=== PATIENT | male | born 1975 | race Caucasian/White ===

== ENCOUNTER 2016-09-29 01:54 | Observation (INO) | payer OTHER ==
[~2016-09-29] VITALS: Ht 182.9 cm; Wt 93.9 kg
[2016-09-29] VITALS (9 sets, daily range): BP systolic 95–144; BP diastolic 51–80; PULSE 69–114; RESP 16–24; TEMP 97.3–98.3; O2SAT 96–100
[~2016-09-29 01:54] MED LIST: ENBR50IN3 SC; HYDR200T3 PO; INDO75CA23 PO; OMEP20TA PO; PRED5PAK PO; PREDPOW70 PO; TAB-TAB PO; [UNRECOGNIZED DRUG - CODE] PO
[2016-09-29] MEDS ORDERED: HUMI40KI SQ (01:59)
[2016-09-29] MEDS ORDERED: PRED1 PO (01:59)
[2016-09-29] MEDS ORDERED: TESTOSTERONE INJ. (02:02)
[2016-09-29] MEDS ORDERED: OXYC1TAB36 PO (02:02)
[2016-09-29] MEDS ORDERED: TEMA15CA PO (02:02)
[2016-09-29] MEDS ORDERED: OMEP20TA PO (02:02)
[2016-09-29] MEDS ORDERED: SODIUM CHLORIDE 0.9% FLUSH 5 ML FLUSH IVF PRN (02:30)
[2016-09-29] MEDS ORDERED: NITROGLYCERIN 0.4 MG SL 25 TABS/BTL SL ONE (02:30)
[2016-09-29] MEDS ORDERED: PANTOPRAZOLE SODIUM 40 MG VIAL IV PUSH ONE (02:30)
[2016-09-29] MEDS ORDERED: ONDANSETRON HCL 4 MG/2 ML VIAL IV ONE (02:30)
[2016-09-29] MEDS ORDERED: SODIUM CHLORID 0.9% 500 ML INJ 500 ML IV ONE (02:30)
[2016-09-29] MEDS ORDERED: NITROGLYCERIN 2% OINT 1 GM PACKET TOP ONE (02:30)
[2016-09-29] MEDS ORDERED: MORPHINE SULFATE 4 MG/ML INJ IV PUSH ONE (02:30)
--- NOTE | 2016-09-29 02:50 | PD ---
HPI Chief Complaint: Respiratory Distress Time Seen by Provider: 02:13 Travel History International Travel<30 days: No Contact w/Intl Traveler<30days: No Traveled to known affect area: No History of Present Illness HPI The patient is a 41 year old male who presents to the [facility] emergency department with a history of chest pain that he reports began last night and then seemed to improve and then recurred again today. The patient reports that he has not felt well over the last few days. He reports that he has a history of ankylosing spondylitis and inflammatory arthritis followed by a career development manager, . He reports that he is on Humira he reports that he is also on a daily dose of prednisone down to 2 mg. He reports that a few days ago he felt like he was getting generalized inflammation in his joints and tenderness in his lymph glands of his neck. He reports that he increased his dose of prednisone to 45 mg yesterday and 60 mg today to get down the inflammation. He thought that the exacerbation of his arthritis may be related to dietary indiscretions on Wednesday. The patient reports that he became concerned this evening when he developed chest pressure and the pressure was radiating up into his neck bilaterally with shortness of breath with lying back. He reports that it was similar to symptoms that he had when he was 19 years of age and developed an infection around his heart with pericardial effusion that required drainage. The patient reports that through the weekend he has been constipated. He reports that he tried taking several oral laxatives without improvement up until this evening when he was able to move his bowels twice. He reports that he's been gassy and thought that the chest pressure was initially related to gas. He reports that he has been belching frequently and this seems to relieve the pressure briefly. He reports having nausea but no vomiting. The patient denies any recent fevers, cough, congestion , vomiting, diarrhea, urinary symptoms, or neurologic symptoms. [facility] Past Medical History Narrative Medical The patient's past medical history is significant for ankylosing spondylitis, inflammatory arthritis, degenerative disc disease with chronic pain related to this, history of acid reflux, history of testosterone deficiency. The patient denies having a primary care physician. He reports that he has an fruit worker, Dr. Jimenez, and a career development manager, . Arthritis: Yes Autoimmune Disease: Yes (ANKYLOSING SPONDYLITIS) Cancer: No Cardiovascular Problems: Yes (PERICARDITIS) Diminished Hearing: No Endocrine: No Gastrointestinal Disorders: Yes GERD: No Genitourinary: No Hiatal Hernia: No Immune Disorder: No Musculoskeletal: Yes Neurologic: No Psychiatric: No Reproductive: No Respiratory: No Ulcer: No Tetanus Vaccination: < 5 Years Influenza Vaccination: Yes Past Surgical History Narrative Surgical The patient's past surgical history is significant for pericardial drainage, appendectomy, ankle surgery, eye surgery, arthroscopy of the knee. Abdominal Surgery: Yes (APPENDECTOMY) AICD: No Arteriovenous Shunt: No Cardiac Surgery: Yes (PERICARDITIS A CHILD) Ear Surgery: No Endocrine Surgery: No Eye Surgery: No Genitourinary Surgery: No Gynecologic Surgery: No Insulin Pump: No Joint Replacement: Yes (RIGHT ANKLE) Oral Surgery: No Pacemaker: No Thoracic Surgery: No Social History Alcohol Use: No Tobacco Use: No Substance Use: No Allergies-Medications (Allergen,Severity, Reaction): Coded Allergies: No Known Allergies (Verified , 09/29/16) Reported Meds & Prescriptions Reported Meds & Active Scripts Active Reported [Testosterone Inj.] Unknown Dose .ROUTE Omeprazole 20 Mg Tab 20 Mg PO DAILY Temazepam 15 Mg Cap 15 Mg PO HS PRN Oxycodone-Acetaminophen 10-325 mg Tab 1 Tab PO Q6H PRN Prednisone 1 Mg Tab 2 Mg PO DAILY Humira 2-Pack Inj (Adalimumab 2-Pack Inj) 40 Mg/0.8 Ml Syr 40 Mg SQ Q14D Review of Systems General / Constitutional: No: Fever Eyes: No: Visual changes HENT: Positive: Neck Pain, No: Headaches, Rhinorrhea, Congestion, Neck Stiffness Cardiovascular: Positive: Chest Pain or Discomfort, Dyspnea on exertion Respiratory: Positive: Shortness of Breath Gastrointestinal: Positive: Nausea, Constipation, Changes in Bowel Habits, Indigestion, No: Vomiting, Diarrhea, Abdominal Pain, Loss of Appetite Genitourinary: No: Dysuria Musculoskeletal: No: Pain Skin: No Rash Neurologic: No: Weakness Psychiatric: No: Depression Endocrine: No: Polydipsia Hematologic/Lymphatic: No: Easy Bruising Physical Exam Narrative General: The patient is a well-developed well-nourished male, uncomfortable appearing on my arrival to the room, with tachypnea, however his O2 saturation on room air is 98-99%. Head and Neck exam: Head is normocephalic atraumatic. Eyes: Pupils are equal round and reactive to light. Nose: Midline septum with pink mucous membranes Mouth: Dentition unremarkable. Moist mucus membranes. Posterior oropharynx is not erythematous. No tonsillar hypertrophy. Uvula midline. Airway patent. Neck: No palpable lymphadenopathy. No nuchal rigidity. No thyromegaly. Cardiovascular: Sinus tachycardia in the low 100 without murmurs, gallops, or rubs. No pulse deficit to the extremities and simultaneous auscultation and palpation of his radial artery. Lungs: Clear to auscultation bilaterally. No wheezes, rhonchi, or rales. The patient is tachypneic. Abdomen: Soft, tenderness on palpation of the midepigastric area, no other tenderness on palpation of the other 4 quadrants of the abdomen. No guarding, rebound, or rigidity. Negative Watson sign. Normal bowel sounds are audible. Extremities: No clubbing, cyanosis, or edema. 2+ pulses in all 4 extremities. Back: No costovertebral angle tenderness to palpation. Neurologic Exam: Grossly nonfocal. Skin Exam: No rash noted. Intact skin that is warm and dry. Data Data Last Documented VS Vital Signs Date Time Temp Pulse Resp B/P Pulse Ox O2 Delivery O2 Flow Rate FiO2 09/29/16 03:11 94 20 119/67 96 Nasal Cannula 1 09/29/16 01:56 98.3 Orders Electrocardiogram (09/29/16 02:28) B-Type Natriuretic Peptide (09/29/16 02:28) Ckmb (Isoenzyme) Profile (09/29/16 02:28) Complete Blood Count With Diff (09/29/16 02:28) Comprehensive Metabolic Panel (09/29/16 02:28) D-Dimer (09/29/16 02:28) Magnesium (Mg) (09/29/16 02:28) Prothrombin Time / Inr (Pt) (09/29/16 02:28) Act Partial Throm Time (Ptt) (09/29/16 02:28) Troponin I (09/29/16 02:28) Lipase (09/29/16 02:28) Chest, Single Ap (09/29/16 02:28) Ecg Monitoring (09/29/16 02:28) Bilateral Bp Monitoring (09/29/16 02:28) Iv Access Insert/Monitor (09/29/16 02:28) Oximetry (09/29/16 02:28) Oxygen Administration (09/29/16 02:28) Morphine Inj (Morphine Inj) (09/29/16 02:30) Nitroglycerin 2% Oint (Nitroglycerin 2% (09/29/16 02:30) Sodium Chloride 0.9% Flush (Ns Flush) (09/29/16 02:30) Nitroglycerin Sl (Nitrostat Sl) (09/29/16 02:30) Sodium Chlorid 0.9% 500 Ml Inj (Ns 500 M (09/29/16 02:30) Westergren Sedimentation Rate (09/29/16 02:28) Ondansetron Inj (Zofran Inj) (09/29/16 02:30) Pantoprazole Inj (Protonix Inj) (09/29/16 02:30) Aspirin Chew (Aspirin Chew) (09/29/16 03:00) Lactic Acid Sepsis Protocol (09/29/16 04:12) Blood Culture (09/29/16 04:12) Sodium Chlor 0.9% 1000 Ml Inj (Ns 1000 M (09/29/16 04:15) Hydromorphone Pf Inj (Dilaudid Pf Inj) (09/29/16 04:45) CKMB (09/29/16 04:20) CKMB% (09/29/16 04:20) Urinalysis - C+S If Indicated (09/29/16 05:05) Admit Order (Ed Use Only) (09/29/16 05:05) Labs Laboratory Tests Test 09/29/16 09/29/16 02:40 04:20 White Blood Count 19.8 TH/MM3 Red Blood Count 5.25 MIL/MM3 Hemoglobin 16.2 GM/DL Hematocrit 47.0 % Mean Corpuscular Volume 89.5 FL Mean Corpuscular Hemoglobin 30.8 PG Mean Corpuscular Hemoglobin 34.4 % Concent Red Cell Distribution Width 12.7 % Platelet Count 275 TH/MM3 Mean Platelet Volume 7.6 FL Neutrophils (%) (Auto) 87.1 % Lymphocytes (%) (Auto) 6.1 % Monocytes (%) (Auto) 6.6 % Eosinophils (%) (Auto) 0.0 % Basophils (%) (Auto) 0.2 % Neutrophils # (Auto) 17.2 TH/MM3 Lymphocytes # (Auto) 1.2 TH/MM3 Monocytes # (Auto) 1.3 TH/MM3 Eosinophils # (Auto) 0.0 TH/MM3 Basophils # (Auto) 0.0 TH/MM3 CBC Comment AUTO DIFF Differential Total Cells 100 Counted Neutrophils % (Manual) 71 % Band Neutrophils % 18 % Lymphocytes % 5 % Monocytes % 6 % Neutrophils # (Manual) 17.6 TH/MM3 Differential Comment FINAL DIFF MANUAL Platelet Estimate NORMAL Platelet Morphology Comment NORMAL Red Cell Morphology Comment NORMAL Erythrocyte Sedimentation Rate 9 mm/hr Prothrombin Time 11.0 SEC Prothromb Time International 1.0 RATIO Ratio Activated Partial 32.9 SEC Thromboplast Time D-Dimer Quantitative (PE/DVT) 0.51 MG/L FEU B-Type Natriuretic Peptide 31 PG/ML Sodium Level 138 MEQ/L Potassium Level 4.0 MEQ/L Chloride Level 100 MEQ/L Carbon Dioxide Level 31.8 MEQ/L Anion Gap 6 MEQ/L Blood Urea Nitrogen 12 MG/DL Creatinine 1.09 MG/DL Estimat Glomerular Filtration 75 ML/MIN Rate Random Glucose 120 MG/DL Lactic Acid Level 1.4 mmol/L Calcium Level 8.8 MG/DL Magnesium Level 2.0 MG/DL Total Bilirubin 0.4 MG/DL Aspartate Amino Transf 17 U/L (AST/SGOT) Alanine Aminotransferase 38 U/L (ALT/SGPT) Alkaline Phosphatase 71 U/L Total Creatine Kinase 125 U/L Creatine Kinase MB 1.5 NG/ML Troponin I LESS THAN 0.02 NG/ML Total Protein 8.2 GM/DL Albumin 3.5 GM/DL Lipase 105 U/L [facility] Medical Decision Making Medical Screen Exam Complete: Yes Emergency Medical Condition: Yes Medical Record Reviewed: Yes Interpretation(s) Last Impressions Chest X-Ray 09/29/16 0228 Signed Impressions: Service Date/Time: Thursday, September 29, 2016 02:41 - CONCLUSION: No acute disease. No significant change has occurred. Rubén Clemens MD Differential Diagnosis Pericarditis, versus acute coronary syndrome, versus acid reflux, versus perforated bowel, versus peptic ulcer disease, versus pancreatitis, versus pulmonary embolism, versus pneumonia Narrative Course During the course of the patients emergency department visit, the patients history, examination, and differential diagnosis were reviewed with the patient. The patient had IV access obtained and blood work sent for analysis. The patient was placed on a explosive ordnance disposal specialist with oximetry and blood pressure monitoring. An EKG was done on arrival. The patient's EKG reveals a sinus tachycardia rate of 105, evidence of left ventricular hypertrophy, nonspecific ST-T abnormalities. No acute ST segment elevation is noted. T waves are inverted in V4, V5, V6. The patient was initially provided normal saline a 500 mL bolus. Protonix 40 mg IV, morphine 4 mg IV, Zofran 4 mg IV, nitroglycerin of labile 1, nitroglycerin 1 inch the chest wall. The patient was given aspirin 162 mg by mouth 1. The patients laboratory studies were reviewed and remarkable for a CBC that shows an elevated white count at 19 with a left shift, however the patient has been on higher doses of steroids which could be contributing to this. CMP is unremarkable, initial set of cardiac enzymes are negative. D-dimer was elevated , therefore CTA to rule out PE was ordered. Radiology studies were reviewed and remarkable for a chest x-ray that shows no acute abnormality. CTA was negative for pulmonary embolism. The patients results were discussed with the patient, including the plan of care. I explained that further testing and/ or monitoring is indicated based on the patients history, examination, and/ or laboratory findings. Therefore, I recommended admission for additional evaluation. The patient expressed understanding and was agreeable with this plan. The patient was admitted to the hospital in stable condition and sent to a bed under the care of the [facility]. Physician Communication Physician Communication The patient's case was discussed with who did agree to admit the patient for further evaluation and treatment at this time. Diagnosis Primary Impression: Chest pain, rule out acute myocardial infarction Additional Impression: Leukocytosis Qualified Code: D72.825 - Bandemia Admitting Information Admitting Physician Requests: Kristen Knight MD Sep 29, 2016 02:50
[2016-09-29 02:54] LABS: AUTOMATED NEUTROPHIL # 17.2 TH/MM3 (1.8-7.7); BASOPHIL % 0.2 % (0.0-2.0); LYMPH % 6.1 % (9.0-44.0); LYMPHOCYTE # 1.2 TH/MM3 (1.0-4.8); MEAN CELL VOLUME 89.5 FL (80.0-100.0); MEAN CORPUSCULAR HEMOGLOBIN 30.8 PG (27.0-34.0); MEAN CORPUSCULAR HGB CONC 34.4 % (32.0-36.0); MONO % 6.6 % (0.0-8.0); NEUT % 87.1 % (16.0-70.0); PLATELET COUNT 275 TH/MM3 (150-450); RED BLOOD COUNT 5.25 MIL/MM3 (4.50-5.90); RED CELL DISTRIBUTION WIDTH 12.7 % (11.6-17.2); WHITE BLOOD COUNT 19.8 TH/MM3 (4.0-11.0)
[2016-09-29 02:55] LABS: HEMO FLAGS AUTO DIFF
[2016-09-29] MEDS ORDERED: ASPIRIN 81 MG CHEW TAB CHEW ONE (03:00)
[2016-09-29 03:04] LABS: APTT (PATIENT) 32.9 SEC (24.3-30.1)
--- NOTE | 2016-09-29 03:13 | RADRPT ---
EXAM DATE/TIME: 09/29/2016 02:41 [facility] COMPARISON: CHEST SINGLE AP, May 21, 2011, 14:09. INDICATIONS : Chest pain. MEDICAL HISTORY : Pericarditis. SURGICAL HISTORY : Pericardial drainage. ENCOUNTER: Initial ACUITY: 1 day PAIN SCORE: 5/10 LOCATION: chest substernal. FINDINGS: A single view of the chest demonstrates the lungs to be symmetrically aerated without evidence of mas s, infiltrate or effusion. The cardiomediastinal contours are unremarkable. Osseous structures are intact. CONCLUSION: No acute disease. No significant change has occurred. Rubén Clemens MD on September 29, 2016 at 3:10 Board Certified Radiologist. This report was verified electronically.
[2016-09-29 03:38] LABS: BANDS 18 % (0-6); NEUTROPHIL # MANUAL DIFF 17.6 TH/MM3 (1.8-7.7); POLYS (SEG NEUTROPHILS) 71 % (16-70); WBC DIFF SAMPLE 100
[2016-09-29 03:39] LABS: PLATELET ESTIMATE SMEAR NORMAL (NORMAL); PLATELET MORPHOLOGY NORMAL (NORMAL); SCAN/DIFF FINAL DIFF MANUAL
[2016-09-29] MEDS ORDERED: SODIUM CHLOR 0.9% 1000 ML INJ 1,000 ML IV ONE ×2 (04:15→10:00)
[2016-09-29] MEDS ORDERED: HYDROmorphone HCL PF 1 MG/ML VIAL IV PUSH ONE (04:45)
[2016-09-29 04:54] LABS: ALT (GPT) 38 U/L (12-78); ANION GAP 6 MEQ/L (5-15); AST (GOT) 17 U/L (15-37); BICARBONATE 31.8 MEQ/L (21.0-32.0); BLOOD UREA NITROGEN 12 MG/DL (7-18); CHLORIDE 100 MEQ/L (98-107); GLOMERULAR FILTRATION RATE 75 ML/MIN (>89); SODIUM (NA) 138 MEQ/L (136-145)
[2016-09-29 04:58] LABS: ALKALINE PHOSPHATASE 71 U/L (45-117); CREATINE KINASE 125 U/L (39-308); TOTAL BILIRUBIN ADULT 0.4 MG/DL (0.2-1.0)
[2016-09-29 05:10] LABS: CKMB 1.5 NG/ML (0.5-3.6)
[2016-09-29] MEDS ORDERED: NALOXONE HCL 0.4 MG/ML AMP IV PRN (05:30)
[2016-09-29] MEDS ORDERED: SODIUM CHLORIDE 0.9% FLUSH 5 ML FLUSH FLUSH PRN (05:30)
[2016-09-29] MEDS ORDERED: ACETAMINOPHEN 325 MG TAB PO PRN ×2 (05:30→06:00)
[2016-09-29] MEDS ORDERED: TEMAZEPAM 15 MG CAP PO PRN (05:30)
[2016-09-29] MEDS ORDERED: ONDANSETRON HCL 4 MG/2 ML VIAL IVP PRN (05:30)
[2016-09-29] MEDS: DOCUSATE SODIUM 100 MG CAP PO SCH ×2 (06:00→18:00)
[2016-09-29] MEDS ORDERED: SENNOSIDES 8.6 MG TAB PO PRN (06:00)
[2016-09-29] MEDS ORDERED: MORPHINE SULFATE 4 MG/ML INJ IV PRN (06:00)
[2016-09-29 06:16] LABS: BLOOD, URINE NEG (NEG); COMMENT (UR) CULT NOT INDICATED; CULTURE IF INDICATED CULT NOT INDICATED; GLUCOSE,URINE NEG (NEG); KETONE, URINE NEG (NEG); MUCUS URINE FEW /lpf (OCC); NITRITE,URINE NEG (NEG); PH, URINE 7.5 (5.0-8.5); SQUAMOUS EPITHELIAL CELL URINE <1 /hpf (0-5); URINE COLOR YELLOW (YELLW/STRAW)
[2016-09-29] MEDS ORDERED: IOHEXOL 350 MG/ML 10 ML VIAL (for RAD DIAG) IV ONE (07:28)
--- NOTE | 2016-09-29 07:51 | RADRPT ---
EXAM DATE/TIME: 09/29/2016 07:23 [facility] COMPARISON: No previous studies available for comparison. INDICATIONS : Mid chest pain. IV CONTRAST: 60 cc Omnipaque 350 (iohexol) IV RADIATION DOSE: 23.15 CTDIvol (mGy) MEDICAL HISTORY : Arthritis. SURGICAL HISTORY : Appendectomy. ENCOUNTER: Initial ACUITY: 2 days PAIN SCALE: 7/10 LOCATION: chest TECHNIQUE: Volumetric scanning of the chest was performed using a pulmonary embolism protocol MIP images were re constructed. Using automated exposure control and adjustment of the mA and/or kV according to patien t size, radiation dose was kept as low as reasonably achievable to obtain optimal diagnostic quality images. FINDINGS: PULMONARY ARTERIES: No filling defects are seen in the pulmonary arteries through the segmental level. LUNGS: There is no consolidation or pneumothorax . No concerning pulmonary nodule is visualized. Minimal bi basilar and right middle lobe atelectasis. PLEURAE: There is no pleural thickening or pleural effusion. MEDIASTINUM: There is good visualization of the great vessels of the middle mediastinum. Right-sided aortic arch w ith aberrant left subclavian artery coursing posterior to the trachea/esophagus. There is prominence of the origin of the left subclavian artery consistent with Kommerell diverticulum. Heart is mildly e nlarged. No evidence of mediastinal or hilar adenopathy/mass. MUSCULOSKELETAL: Within normal limits for patient age. MISCELLANEOUS: The visualized upper abdominal organs demonstrate no acute abnormality. CONCLUSION: 1. No evidence for pulmonary embolism. 2. 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 This is consistent with Kommerell diverticulum. Most patients are asymptomatic. 3. Mild cardiomegaly. 4. Minimal bibasilar atelectasis. Robinson Lane MD on September 29, 2016 at 7:39 Board Certified Radiologist. This report was verified electronically.
[2016-09-29] MEDS: SODIUM CHLORIDE 0.9% FLUSH 5 ML FLUSH FLUSH SCH ×2 (08:51→20:18)
[2016-09-29] MEDS: PANTOPRAZOLE SOD 20 MG DELAYED RELEASE TAB PO SCH (08:51)
[2016-09-29] MEDS ORDERED: predniSONE 1 MG TAB PO SCH (09:00)
[2016-09-29] MEDS ORDERED: HYDROmorphone HCL PF 1 MG/ML VIAL IV PUSH PRN ×3 (10:00)
[2016-09-29] MEDS: SODIUM CHLOR 0.9% 1000 ML INJ 1,000 ML IV SCH ×2 (11:03→20:00)
[2016-09-29] MEDS: methylPREDNISolone SOD SUCC 125 MG/2 ML VIAL IV PUSH SCH ×2 (11:03→22:47)
--- NOTE | 2016-09-29 11:25 | HHI.HP ---
cc: Gee Street MD [facility] Gee Street MD Admission Diagnosis CP RO [place], leukocytosis, h/o pericarditis Diagnoses: Chief Complaint: chest pain Travel History International Travel<30 Days: No Contact w/Intl Traveler <30 Da: No Traveled to Known Affected Are: No History of Present Illness 41-year-old male with history of ankylosing spondylitis, inflammatory arthritis , degenerative disc disease, chronic back pain, GERD, testosterone deficiency, presents with a 2 day history of chest pain. Patient reports over the past 5 days he has been battling constipation, taking a lot of laxatives and Gas-X, finally had a normal BM last night. However 2 days ago he started to develop constant chest pains that starts substernally, radiates into bilateral neck/ shoulders, described as 8/10 pressure, associated with severe shortness of breath, no nausea/vomiting/diaphoresis; worse with leaning forward, lying down, and deep breathing, relieved by standing. Denies cough, fevers, chills. He also reports diffuse joint pain located in his back, hips, wrists. He thought this may be a flare of his ankylosing spondylitis so he increased his prednisone from 2mg to 45mg two days ago, then took 60mg yesterday without any significant relief. Then he started to become concerned that he was having recurrent pericarditis and pericardial effusion as he did at age 19 because his symptoms were very similar. He was hospitalized at [facility] at that time, underwent drainage of the pericardial effusion. He follows with client portfolio manager Dr. Street, currently on Humira, last dose Tuesday 09/26. He has no other medical complaints at this time. Review of Systems Constitutional: DENIES: Diaphoretic episodes, Fever, Chills, Dizziness Endocrine: DENIES: Polydipsia, Polyuria, Polyphagia Eyes: DENIES: Blurred vision, Eye pain, Double Vision Ears, nose, mouth, throat: COMPLAINS OF: Throat pain, Odynophagia, DENIES: Hoarseness, Ear Pain, Running Nose Respiratory: COMPLAINS OF: Shortness of breath, DENIES: Cough, Sputum production Cardiovascular: COMPLAINS OF: Chest pain, Dyspnea on Exertion, DENIES: Palpitations, Syncope, Lower Extremity Edema, Orthopnea Gastrointestinal: COMPLAINS OF: Constipation, DENIES: Abdominal pain, Black stools, Bloody stools, Diarrhea, Nausea, Vomiting Genitourinary: DENIES: Urinary frequency, Urgency, Dysuria Musculoskeletal: COMPLAINS OF: Joint pain, Muscle aches, Back pain, Neck pain Integumentary: DENIES: Pruritus, Rash Hematologic/lymphatic: DENIES: Bruising, Lymphadenopathy Immunologic/allergic: DENIES: Eczema, Urticaria Neurologic: DENIES: Abnormal gait, Headache, Localized weakness, Paresthesias Psychiatric: DENIES: Anxiety, Depression Past Family Social History Past Medical History ankylosing spondylitis inflammatory arthritis degenerative disc disease chronic back pain GERD testosterone deficiency pericarditis/pericardial effusion age 19 Past Surgical History pericardial effusion drainage age 19 appendectomy ankle surgery eye surgery knee arthroscopy Reported Medications [Testosterone Inj.] Unknown Dose .ROUTE Omeprazole 20 Mg Tab 20 Mg PO DAILY Temazepam 15 Mg Cap 15 Mg PO HS PRN Oxycodone-Acetaminophen 10-325 mg Tab 1 Tab PO Q6H PRN Prednisone 1 Mg Tab 2 Mg PO DAILY Humira 2-Pack Inj (Adalimumab 2-Pack Inj) 40 Mg/0.8 Ml Syr 40 Mg SQ Q14D Allergies: Coded Allergies: No Known Allergies (Verified , 09/29/16) Active Ordered Medications Current Medications Medications (Trade) Dose Ordered Sig/Kun Route Start Time Stop Time Status Last Admin (Protonix) 20 mg DAILY PO 09/29/16 09:00 09/29/16 08:51 (Restoril) 15 mg HS PRN PO 09/29/16 05:30 (NS Flush) 2 ml UNSCH PRN FLUSH 09/29/16 05:30 (NS Flush) 2 ml BID FLUSH 09/29/16 09:00 09/29/16 08:51 (Tylenol) 650 mg Q4H PRN PO 09/29/16 05:30 (Zofran Inj) 4 mg Q6H PRN IVP 09/29/16 05:30 09/29/16 08:15 (Colace) 100 mg Q12H PO 09/29/16 06:00 (Senokot) 17.2 mg Q12H PRN PO 09/29/16 06:00 (Tylenol) 650 mg Q6H PRN PO 09/29/16 06:00 (Roxicodone) 10 mg Q4H PRN PO 09/29/16 06:00 09/29/16 10:21 (Roxicodone) 5 mg Q4H PRN PO 09/29/16 06:00 Naloxone HCl 0.4 mg 0.4 mg UNSCH PRN IV 09/29/16 05:30 (NS 1000 ml Inj) 1,000 ml @ 100 mls/hr Q10H IV 09/29/16 10:00 (SoluMEDROL INJ) 60 mg Q12H IV PUSH 09/29/16 11:00 (Dilaudid Pf Inj) 0.5 mg Q4H PRN IV PUSH 09/29/16 10:00 (Dilaudid Pf Inj) 1 mg Q4H PRN IV PUSH 09/29/16 10:00 (Dilaudid Pf Inj) 1 mg Q4H PRN IV PUSH 09/29/16 10:00 Family History Father with hypertension and heart disease Mother with no significant medical problems Social History Denies any tobacco, alcohol, or illicit drug use. Physical Exam Vital Signs Vital Signs Date Time Temp Pulse Resp B/P Pulse Ox O2 Delivery O2 Flow Rate FiO2 09/29/16 08:51 20 09/29/16 08:19 97 20 95/52 98 Nasal Cannula 2 09/29/16 07:31 16 09/29/16 03:11 94 20 119/67 96 Nasal Cannula 1 09/29/16 03:10 96 Nasal Cannula 1 09/29/16 03:10 94 18 119/67 96 09/29/16 02:07 109 36 100 Nasal Cannula 1 09/29/16 01:56 98.3 114 24 144/80 97 Room Air Physical Exam GENERAL: Well-nourished, well-developed middle aged male patient in NAD. SKIN: Warm and dry. No rash. HEAD: Normocephalic. Atraumatic. EYES: Pupils equal and round. No scleral icterus. No injection or drainage. ENT: No nasal bleeding or discharge. Mucous membranes pink and moist. NECK: Supple. Trachea midline. CARDIOVASCULAR: Regular rate and rhythm. S1, S2 noted. No murmur appreciated. RESPIRATORY: No accessory muscle use. Clear to auscultation. Breath sounds equal bilaterally. GASTROINTESTINAL: Abdomen soft, non-tender, nondistended. Normoactive bowel sounds x4. MUSCULOSKELETAL: No obvious deformities. Extremities without clubbing, cyanosis , or edema. NEUROLOGICAL: Awake and alert. No obvious cranial nerve deficits. Motor grossly within normal limits. 5/5 muscle strength in bilateral upper and lower extremities. Normal speech. PSYCHIATRIC: Appropriate mood and affect; insight and judgment normal. Laboratory Laboratory Tests Test 09/29/16 09/29/16 09/29/16 09/29/16 02:40 04:20 05:45 05:55 White Blood Count 19.8 Red Blood Count 5.25 Hemoglobin 16.2 Hematocrit 47.0 Mean Corpuscular Volume 89.5 Mean Corpuscular Hemoglobin 30.8 Mean Corpuscular Hemoglobin 34.4 Concent Red Cell Distribution Width 12.7 Platelet Count 275 Mean Platelet Volume 7.6 Neutrophils (%) (Auto) 87.1 Lymphocytes (%) (Auto) 6.1 Monocytes (%) (Auto) 6.6 Eosinophils (%) (Auto) 0.0 Basophils (%) (Auto) 0.2 Neutrophils # (Auto) 17.2 Lymphocytes # (Auto) 1.2 Monocytes # (Auto) 1.3 Eosinophils # (Auto) 0.0 Basophils # (Auto) 0.0 CBC Comment AUTO DIFF Differential Total Cells 100 Counted Neutrophils % (Manual) 71 Band Neutrophils % 18 Lymphocytes % 5 Monocytes % 6 Neutrophils # (Manual) 17.6 Differential Comment FINAL DIFF MANUAL Platelet Estimate NORMAL Platelet Morphology Comment NORMAL Red Cell Morphology Comment NORMAL Erythrocyte Sedimentation Rate 9 Prothrombin Time 11.0 Prothromb Time International 1.0 Ratio Activated Partial 32.9 Thromboplast Time D-Dimer Quantitative (PE/DVT) 0.51 B-Type Natriuretic Peptide 31 Sodium Level 138 Potassium Level 4.0 Chloride Level 100 Carbon Dioxide Level 31.8 Anion Gap 6 Blood Urea Nitrogen 12 Creatinine 1.09 Estimat Glomerular Filtration 75 Rate Random Glucose 120 Lactic Acid Level 1.4 Calcium Level 8.8 Magnesium Level 2.0 Total Bilirubin 0.4 Aspartate Amino Transf 17 (AST/SGOT) Alanine Aminotransferase 38 (ALT/SGPT) Alkaline Phosphatase 71 Total Creatine Kinase 125 Creatine Kinase MB 1.5 Troponin I LESS THAN 0.02 LESS THAN 0.02 Total Protein 8.2 Albumin 3.5 Lipase 105 Urine Color YELLOW Urine Turbidity CLEAR Urine pH 7.5 Urine Specific [place] 1.024 Urine Protein 30 Urine Glucose (UA) NEG Urine Ketones NEG Urine Occult Blood NEG Urine Nitrite NEG Urine Bilirubin NEG Urine Urobilinogen LESS THAN 2.0 Urine Leukocyte Esterase NEG Urine RBC 1 Urine WBC 1 Urine Squamous Epithelial <1 Cells Urine Mucus FEW Microscopic Urinalysis Comment CULT NOT INDICATED Date/Time Procedure Status Source Growth 09/29/16 04:20 Aerobic Blood Culture Received Blood Peripheral Pending 09/29/16 04:20 Anaerobic Blood Culture Received Blood Peripheral Pending Result Diagram: 09/29/16 0240 09/29/[address] Angiography 09/29/1629 Signed Impressions: Service Date/Time: Thursday, September 29, 2016 07:23 - CONCLUSION: 1. No evidence for pulmonary embolism. 2. Right-sided aortic arch and aberrant left subclavian artery coursing posterior to the esophagus/trachea. This is consistent with Kommerell diverticulum. Most patients are asymptomatic. 3. Mild cardiomegaly. 4. Minimal bibasilar atelectasis. Robinson Lane MD Chest X-Ray 09/29/16 0228 Signed Impressions: Service Date/Time: Thursday, September 29, 2016 02:41 - CONCLUSION: No acute disease. No significant change has occurred. Rubén Clemens MD Assessment and Plan Assessment and Plan 41-year-old male with history of ankylosing spondylitis, inflammatory arthritis , degenerative disc disease, chronic back pain, GERD, testosterone deficiency, presents with a 2 day history of chest pains. Chest Pain: concern for pericarditis, pericardial effusion, ACS, vs other. BNP 31, ESR 9. CXR unremarkable, images reviewed by me. CT-PA with no PE, showed right sided aortic arch and aberrant left subclavian artery coursing posterior to esophagus/trachea, consistent with Kommerell diverticulum; most patients are asymptomatic. First 2 troponins negative and EKG shows sinus tach,T wave inversions in V4, V5, V6, no acute ST elevation/depression. -Checking 3rd set of cardiac enzymes/EKG. -Continue Nitro paste, Aspirin. Pain control with IV Dilaudid prn. -Monitor on telemetry -Check echocardiogram -Patient borderline hypotensive, giving IVF bolus and start on maintenance fluids -Consult cardiology Diffuse Pains, suspect Ankylosing Spondylitis Exacerbation: patient on prednisone 2mg daily and Humira q14d. Follows with client portfolio manager Dr. Street -increase steroids to IV Solumedrol 60mg bid -continue patient's oxycodone, and supplement with IV Dilaudid prn pain scale /breakthrough GERD: chronic, continue patient's PPI. DVT Prophylaxis: teds/SCDs Written by Camilla Davis, acting as scribe for Dr. Marsh on 09/29/16 at 09:40. The documentation accurately reflects the work performed [id number] by ia Dr. Marsh on 09/29/16 at 09:40. Code Status Full Code Discussed Condition With Patient Caimlla Davis PA-C Sep 29, 2016 11:25 Abbie Marsh MD Sep 29, 2016 12:55
[2016-09-29 12:41] LABS: AUTOMATED NEUTROPHIL # 17.6 TH/MM3 (1.8-7.7); BASOPHIL % 0.1 % (0.0-2.0); HEMATOCRIT 43.4 % (39.0-51.0); LYMPH % 4.7 % (9.0-44.0); LYMPHOCYTE # 0.9 TH/MM3 (1.0-4.8); MEAN CELL VOLUME 90.2 FL (80.0-100.0); MEAN CORPUSCULAR HEMOGLOBIN 30.8 PG (27.0-34.0); MEAN CORPUSCULAR HGB CONC 34.2 % (32.0-36.0); MONO % 5.2 % (0.0-8.0); PLATELET COUNT 259 TH/MM3 (150-450); RED BLOOD COUNT 4.81 MIL/MM3 (4.50-5.90); RED CELL DISTRIBUTION WIDTH 13.1 % (11.6-17.2); WHITE BLOOD COUNT 19.6 TH/MM3 (4.0-11.0)
[2016-09-29 12:46] LABS: HEMO FLAGS AUTO DIFF
[2016-09-29] MEDS: COLCHICINE 0.6 MG TAB PO SCH ×2 (12:50→20:52)
[2016-09-29] MEDS: NAPROXEN 500 MG TAB PO SCH ×2 (12:55→20:18)
[2016-09-29 13:07] LABS: POTASSIUM 4.1 MEQ/L (3.5-5.1)
[2016-09-29 13:22] LABS: BANDS 10 % (0-6); NEUTROPHIL # MANUAL DIFF 17.6 TH/MM3 (1.8-7.7); PLATELET ESTIMATE SMEAR NORMAL (NORMAL); PLATELET MORPHOLOGY NORMAL (NORMAL); POLYS (SEG NEUTROPHILS) 80 % (16-70); SCAN/DIFF FINAL DIFF MANUAL; WBC DIFF SAMPLE 100
--- NOTE | 2016-09-29 15:12 | EC ---
Study Study Date:09/29/2016 STUDY CONCLUSIONS SUMMARY - Left ventricle: The cavity size was normal. There was mild focal basal hypertrophy of the septum. Systolic function was normal. The estimated ejection fraction was in the range of 55% to 60%. Wall motion was normal; there were no regional wall motion abnormalities. - Pulmonary arteries: PA peak pressure: 37mm Hg (S). If LV function is below 40, please consider prescribing an ACEI or ARB or document rationale for non-use. PROCEDURE DATA STUDY STATUS: Elective. Procedure: Transthoracic echocardiography. Image quality was good. Scanning was performed from the parasternal, apical, and subcostal acoustic windows. Study completion: The patient tolerated the procedure well. Transthoracic echocardiography. M-mode, complete 2D, complete spectral Doppler, and color Doppler. Patient status: Inpatient. CARDIAC ANATOMY LEFT VENTRICLE: The cavity size was normal. There was mild focal basal hypertrophy of the septum. Systolic function was normal. The estimated ejection fraction was in the range of 55% to 60%. Wall motion was normal; there were no regional wall motion abnormalities. AORTIC VALVE: Trileaflet; normal thickness leaflets. Doppler: Transvalvular velocity was within the normal range. There was no stenosis. No regurgitation. AORTA: Aortic root: The aortic root was normal in size. MITRAL VALVE: Structurally normal valve. Doppler: Transvalvular velocity was within the normal range. There was no evidence for stenosis. Trace regurgitation. LEFT ATRIUM: The atrium was normal in size. RIGHT VENTRICLE: The cavity size was normal. Wall thickness was normal. PULMONIC VALVE: Doppler: Transvalvular velocity was within the normal range. There was no evidence for stenosis. No regurgitation. TRICUSPID VALVE: Structurally normal valve. Doppler: Transvalvular velocity was within the normal range. No regurgitation. PULMONARY ARTERY: The main pulmonary artery was normal-sized. Systolic pressure was within the normal range. RIGHT ATRIUM: The atrium was normal in size. PERICARDIUM: There was no pericardial effusion. SYSTEMIC VEINS: Inferior vena cava: The vessel was normal in size. BASIC MEASUREMENTS ADULT Normal Left ventricle LV internal dimension, ED, chordal level, *56.9 mm 43-52 PLAX LV posterior wall thickness, ED 11.3 mm IVS/LVPW ratio, ED *1.31 <1.3 Ventricular septum Septal thickness, ED 14.8 mm Aortic valve Leaflet separation 26 mm 15-26 Right ventricle RV internal dimension, ED, PLAX 28.3 mm 19-38 BASIC MEASUREMENTS ADULT Normal Aortic valve Leaflet separation 26 mm 15-26 Aorta Root diameter, ED 34 mm 20-37 Left atrium Anterior-posterior dimension, ES 40 mm 19-40 LA/aortic root ratio 1.18 DOPPLER MEASUREMENTS ADULT Normal Main pulmonary artery Pressure, S *37 mm Hg =30 Tricuspid valve Regurgitant peak velocity 261 cm/s Peak RV-RA gradient, S 27 mm Hg Maximal regurgitant velocity 261 cm/s Systemic veins Estimated CVP 10 mm Hg Right ventricle RV pressure, S *37 mm Hg <30 LEGEND: Mean values are shown as u=mean value. Asterisk (*) christianson values outside specified normal range. Prepared and signed by Dawn Hu [id number]
--- NOTE | 2016-09-29 15:53 | MB ---
cc: MUSTAPHA ROMERO MD DATE OF CONSULTATION: 09/29/2016 REASON FOR CONSULTATION: Chest pain evaluation for pericarditis. HISTORY OF PRESENT ILLNESS Mr. Burger is a 41-year-old man who does have a history of ankylosing spondylitis and previous pericarditis with pericardial effusion. The patient reports that on Wednesday he had a strenuous day at work. This flared up his ankylosing spondylitis, and his symptoms progressed over the weekend. He is now having severe chest pain that is pleuritic and feels like when he had his previous pericarditis and effusion. The patient in such pain at this time he is unable to give me any further history and he referred me back to his records. PAST MEDICAL HISTORY 1. Per the records include; 2. Ankylosing spondylitis 3. inflammatory arthritis 4. Degenerative joint disease. 5. Back pain. 6. Gastroesophageal reflux disease. 7. Testosterone deficiency 8. pericarditis with pericardial effusion. PAST SURGICAL HISTORY: 1. appendectomy 2. Ankle surgery. 3. Eye surgery. 4. Knee arthroscopy. OUTPATIENT MEDICATIONS 1. Testosterone. 2. Omeprazole. 3. Temazepam. 4. Oxycodone. 5. Acetaminophen. 6. Prednisone 7. Humira. ALLERGIES NO KNOWN DRUG ALLERGIES. FAMILY HISTORY Positive for coronary artery disease. SOCIAL HISTORY The patient does not drink or smoke. REVIEW OF SYSTEMS Unobtainable. PHYSICAL EXAMINATION: VITAL SIGNS: On physical examination vital signs 97, 20, 95/52. IN GENERAL: He is a well appearing man who is in obvious pleuritic distress. NECK: The neck is free from jugular venous distention. LUNGS: The lungs are clear to auscultation. CARDIOVASCULAR SYSTEM: Examination he has a normal S1 and anesthesia did not appreciate murmurs, rubs or gallops. ABDOMEN: The abdomen is soft. EXTREMITIES: Extremities are free from edema. LABORATORY FINDINGS Significant for WBC is 19.8 and she had troponins of 0.30 / less than 0.02. CT angiography is negative for pulmonary embolism. He has a right-sided aortic arch and an apparent left subclavian artery. There is mild cardiomegaly and minimal atelectasis. There is no mention of any pericardial effusion. EKG shows normal sinus rhythm with nonspecific ST-T wave changes. IMPRESSION Chest pain - the patient has had a continuous chest pain that does have any pleuritic component. His enzymes are negative for any ACS or myocardial involvement. As he does fit the pleuritic component of pericarditis and this is similar to his prior presentation. I think it is reasonable to go ahead with colchicine and NSAIDS. Of note; steroids are not indicated for this purpose though I do realize that it maybe indicated for his ankylosing spondylitis. Echocardiogram has been requested stat as the patient is becoming a bit despondent about not having his echocardiogram. 2. Ankylosing spondylitis - this will be managed by the primary team. Mustapha Romero M.D. BO/hanna /11:43 AM /3:25 PM
--- NOTE | 2016-09-29 17:36 | EKG ---
Date Performed: 09/29/2016 Time Performed: 02:11:48 PTAGE: 41 years EKG: SINUS TACHYCARDIA LEFT VENTRICULAR HYPERTROPHY AND ST-T CHANGE Inverted T wave consistent w ith LVH and or ischemia. Clinical correlation ias suggested. When compared to previous tracing, patie nt is now meeting Criteria for LVH and has ST segment shifts. ABNORMAL ECG PREVIOUS TRACING : 05/21/2011 14.51.20 DOCTOR: Dawn Hu Interpretating Date/Time 09/29/2016 17:35:19
[2016-09-30] VITALS: BP 117/55; PULSE 64; RESP 18; TEMP 97; O2SAT 95
[2016-09-30] MEDS: SODIUM CHLOR 0.9% 1000 ML INJ 1,000 ML IV SCH (02:38)
[2016-09-30 04:00] VITALS: BP 103/53; PULSE 63; RESP 18; TEMP 97.1; O2SAT 95
[2016-09-30] MEDS: DOCUSATE SODIUM 100 MG CAP PO SCH (06:00)
--- NOTE | 2016-09-30 07:28 | PD.CARD.PN ---
Subjective Subjective Remarks Pt reports greatly improved Objective Medications Current Medications Medications (Trade) Dose Ordered Sig/Kun Route Start Time Stop Time Status Last Admin (Protonix) 20 mg DAILY PO 09/29/16 09:00 09/29/16 08:51 (Restoril) 15 mg HS PRN PO 09/29/16 05:30 09/29/16 22:46 (NS Flush) 2 ml UNSCH PRN FLUSH 09/29/16 05:30 (NS Flush) 2 ml BID FLUSH 09/29/16 09:00 09/29/16 08:51 (Tylenol) 650 mg Q4H PRN PO 09/29/16 05:30 (Zofran Inj) 4 mg Q6H PRN IVP 09/29/16 05:30 09/29/16 08:15 (Colace) 100 mg Q12H PO 09/29/16 06:00 (Senokot) 17.2 mg Q12H PRN PO 09/29/16 06:00 (Tylenol) 650 mg Q6H PRN PO 09/29/16 06:00 (Roxicodone) 10 mg Q4H PRN PO 09/29/16 06:00 09/30/16 04:36 (Roxicodone) 5 mg Q4H PRN PO 09/29/16 06:00 Naloxone HCl 0.4 mg 0.4 mg UNSCH PRN IV 09/29/16 05:30 (NS 1000 ml Inj) 1,000 ml @ 100 mls/hr Q10H IV 09/29/16 10:00 09/30/16 02:38 (SoluMEDROL INJ) 60 mg Q12H IV PUSH 09/29/16 11:00 09/29/16 22:47 (Dilaudid Pf Inj) 0.5 mg Q4H PRN IV PUSH 09/29/16 10:00 09/29/16 11:04 (Dilaudid Pf Inj) 1 mg Q4H PRN IV PUSH 09/29/16 10:00 09/29/16 15:16 (Dilaudid Pf Inj) 1 mg Q4H PRN IV PUSH 09/29/16 10:00 (Colchicine) 0.6 mg BID PO 09/29/16 11:45 09/29/16 20:52 (Naprosyn) 500 mg Q12HR PO 09/29/16 11:45 09/29/16 20:18 (Pneumovax-23 Inj) 25 mcg ONCE ONCE IM 09/30/16 10:00 09/30/16 10:01 Vital Signs / I&O Vital Signs Date Time Temp Pulse Resp B/P Pulse Ox O2 Delivery O2 Flow Rate FiO2 09/30/16 04:00 97.1 63 18 103/53 95 09/30/16 00:00 97.0 64 18 117/55 95 09/29/16 20:00 78 09/29/16 20:00 97.3 69 20 121/51 96 09/29/16 15:54 75 18 106/55 99 Room Air 09/29/16 15:40 18 09/29/16 15:37 73 18 100/54 100 Room Air 09/29/16 14:55 95 16 116/73 99 Room Air 09/29/16 14:46 18 09/29/16 12:20 18 09/29/16 12:20 18 09/29/16 11:45 96 20 118/70 99 Room Air 09/29/16 08:51 20 09/29/16 08:19 97 20 95/52 98 Nasal Cannula 2 I/O 09/29/16 09/29/16 09/29/16 09/30/16 09/30/16 09/30/16 07:00 15:00 23:00 07:00 15:00 23:00 Intake Total 240 ml 240 ml 1588 ml Output Total 580 ml 500 ml 500 ml Balance -340 ml -260 ml 1088 ml Intake Oral 240 ml 240 ml 240 ml IV Total 1348 ml Output Urine Total 580 ml 500 ml 500 ml # Voids 1 # Bowel Movements 0 0 Physical Exam GENERAL: Well developed, well nourished. No acute distress. HEENT: Jugular venous pressure is normal. CHEST: Lungs clear to auscultation bilaterally. Unlabored respiratory effort. CARDIAC: Regular rate and rhythm without S3, S4, or murmur. ABDOMEN: Soft, nontender, no hepatosplenomegaly. Bowel sounds present. EXTREMITIES: No clubbing, cyanosis, or edema. Laboratory Laboratory Tests Test 09/29/16 09/29/16 12:20 20:59 White Blood Count 19.6 TH/MM3 Red Blood Count 4.81 MIL/MM3 Hemoglobin 14.8 GM/DL Hematocrit 43.4 % Mean Corpuscular Volume 90.2 FL Mean Corpuscular Hemoglobin 30.8 PG Mean Corpuscular Hemoglobin 34.2 % Concent Red Cell Distribution Width 13.1 % Platelet Count 259 TH/MM3 Mean Platelet Volume 7.4 FL Neutrophils (%) (Auto) 90.0 % Lymphocytes (%) (Auto) 4.7 % Monocytes (%) (Auto) 5.2 % Eosinophils (%) (Auto) 0.0 % Basophils (%) (Auto) 0.1 % Neutrophils # (Auto) 17.6 TH/MM3 Lymphocytes # (Auto) 0.9 TH/MM3 Monocytes # (Auto) 1.0 TH/MM3 Eosinophils # (Auto) 0.0 TH/MM3 Basophils # (Auto) 0.0 TH/MM3 CBC Comment AUTO DIFF Differential Total Cells 100 Counted Neutrophils % (Manual) 80 % Band Neutrophils % 10 % Lymphocytes % 6 % Monocytes % 4 % Neutrophils # (Manual) 17.6 TH/MM3 Differential Comment FINAL DIFF MANUAL Platelet Estimate NORMAL Platelet Morphology Comment NORMAL Red Cell Morphology Comment NORMAL Sodium Level 136 MEQ/L Potassium Level 4.1 MEQ/L Chloride Level 100 MEQ/L Carbon Dioxide Level 28.0 MEQ/L Anion Gap 8 MEQ/L Blood Urea Nitrogen 13 MG/DL Creatinine 1.07 MG/DL Estimat Glomerular Filtration 77 ML/MIN Rate Random Glucose 112 MG/DL Calcium Level 8.6 MG/DL Troponin I LESS THAN 0.02 NG/ML Imaging ECHO - normal EF no effusion Assessment and Plan Assessment and Plan Pericarditis- uncomplicated at this poitn; responded to colchicine and naproxen - continue same meds -ok for d/c and forllow up in 1 week Ankylosing spondylitis - this will be managed by the primary team. Available PRDawn Sunshine MD Sep 30, 2016 07:28
[2016-09-30 08:00] VITALS: BP 121/61; PULSE 66; RESP 20; TEMP 96.8; O2SAT 94
[2016-09-30] MEDS: COLCHICINE 0.6 MG TAB PO SCH (08:23)
[2016-09-30] MEDS: NAPROXEN 500 MG TAB PO SCH (08:23)
[2016-09-30] MEDS: PANTOPRAZOLE SOD 20 MG DELAYED RELEASE TAB PO SCH (08:23)
[2016-09-30] MEDS: SODIUM CHLORIDE 0.9% FLUSH 5 ML FLUSH FLUSH SCH (08:25)
[2016-09-30 09:47] LABS: AUTOMATED NEUTROPHIL # 13.6 TH/MM3 (1.8-7.7); HEMO FLAGS DIFF FINAL; LYMPH % 6.4 % (9.0-44.0); MEAN CELL VOLUME 91.7 FL (80.0-100.0); MEAN CORPUSCULAR HGB CONC 33.8 % (32.0-36.0); MONO % 4.9 % (0.0-8.0); NEUT % 88.7 % (16.0-70.0); PLATELET COUNT 215 TH/MM3 (150-450); RED BLOOD COUNT 4.26 MIL/MM3 (4.50-5.90); WHITE BLOOD COUNT 15.4 TH/MM3 (4.0-11.0)
[2016-09-30] MEDS ORDERED: PNEUMOCOCCAL POLYVALENT INJ 25 MCG/0.5 ML SYR IM ONE (10:00)
[2016-09-30 10:37] LABS: BICARBONATE 27.6 MEQ/L (21.0-32.0); POTASSIUM 4.2 MEQ/L (3.5-5.1)
[2016-09-30] MEDS: methylPREDNISolone SOD SUCC 125 MG/2 ML VIAL IV PUSH SCH (11:32)
[2016-09-30 12:00] VITALS: BP 141/93; PULSE 66; RESP 20; TEMP 97.9; O2SAT 96
[2016-09-30] MEDS ORDERED: NAPR500 PO (12:03)
[2016-09-30] MEDS ORDERED: COLC1TAB15 PO (12:03)
--- NOTE | 2016-09-30 12:04 | HHI.DCPOC ---
Discharge Care Plan Goals to Promote Your Health * To prevent worsening of your condition and complications * To maintain your health at the optimal level Directions to Meet Your Goals Take your medications as prescribed Follow your dietary instruction Follow activity as directed Keep your appointments as scheduled Take your immunizations and boosters as scheduled If your symptoms worsen call your PCP, if no PCP go to Urgent Care Center or Emergency Room Smoking is Dangerous to Your Health. Avoid second hand smoke Call the 24-hour hour crisis hotline for domestic abuse at Abbie Marsh MD Sep 30, 2016 12:04
--- NOTE | 2016-09-30 14:15 | HHI.PR ---
Subjective Remarks Feels much better. No n/v/d/c. Denies fever or chills. No sob. Objective Vitals Vital Signs Date Time Temp Pulse Resp B/P Pulse Ox O2 Delivery O2 Flow Rate FiO2 09/30/16 12:00 97.9 66 20 141/93 96 09/30/16 08:00 66 09/30/16 08:00 96.8 66 20 121/61 94 09/30/16 04:00 97.1 63 18 103/53 95 09/30/16 00:00 97.0 64 18 117/55 95 09/29/16 20:00 78 09/29/16 20:00 97.3 69 20 121/51 96 09/29/16 15:54 75 18 106/55 99 Room Air 09/29/16 15:40 18 09/29/16 15:37 73 18 100/54 100 Room Air 09/29/16 14:55 95 16 116/73 99 Room Air 09/29/16 14:46 18 I/O 09/29/16 09/29/16 09/29/16 09/30/16 09/30/16 09/30/16 07:00 15:00 23:00 07:00 15:00 23:00 Intake Total 240 ml 240 ml 1588 ml Output Total 580 ml 500 ml 500 ml Balance -340 ml -260 ml 1088 ml Intake Oral 240 ml 240 ml 240 ml IV Total 1348 ml Output Urine Total 580 ml 500 ml 500 ml # Voids 1 # Bowel Movements 0 0 Result Diagram: 09/30/16 0856 09/30/16 [address] Angiography 09/29/16 0629 Signed Impressions: Service Date/Time: Thursday, September 29, 2016 07:23 - CONCLUSION: 1. No evidence for pulmonary embolism. 2. Right-sided aortic arch and aberrant left subclavian artery coursing posterior to the esophagus/trachea. This is consistent with Kommerell diverticulum. Most patients are asymptomatic. 3. Mild cardiomegaly. 4. Minimal bibasilar atelectasis. Robinson Lane MD Chest X-Ray 09/29/16 0228 Signed Impressions: Service Date/Time: Thursday, September 29, 2016 02:41 - CONCLUSION: No acute disease. No significant change has occurred. Rubén Clemens MD Objective Remarks GENERAL: Well-nourished, well-developed middle aged male patient in NAD. SKIN: Warm and dry. No rash. HEAD: Normocephalic. Atraumatic. EYES: Pupils equal and round. No scleral icterus. No injection or drainage. ENT: No nasal bleeding or discharge. Mucous membranes pink and moist. NECK: Supple. Trachea midline. CARDIOVASCULAR: Regular rate and rhythm. S1, S2 noted. No murmur appreciated. RESPIRATORY: No accessory muscle use. Clear to auscultation. Breath sounds equal bilaterally. GASTROINTESTINAL: Abdomen soft, non-tender, nondistended. Normoactive bowel sounds x4. MUSCULOSKELETAL: No obvious deformities. Extremities without clubbing, cyanosis , or edema. NEUROLOGICAL: Awake and alert. No obvious cranial nerve deficits. Motor grossly within normal limits. 5/5 muscle strength in bilateral upper and lower extremities. Normal speech. PSYCHIATRIC: Appropriate mood and affect; insight and judgment normal. A/P Assessment and Plan 41-year-old male with history of ankylosing spondylitis, inflammatory arthritis , degenerative disc disease, chronic back pain, GERD, testosterone deficiency, presents with a 2 day history of chest pains. Chest Pain: 2/2 pericarditis, r/o pericardial effusion/tamponade, ACS, vs other. BNP 31, ESR 9. CXR unremarkable, images reviewed by me. CT-PA with no PE , showed right sided aortic arch and aberrant left subclavian artery coursing posterior to esophagus/trachea, consistent with Kommerell diverticulum; most patients are asymptomatic. Troponins negative x3 and EKG shows sinus tach,T wave inversions in V4, V5, V6, no acute ST elevation/depression. -Checking 3rd set of cardiac enzymes/EKG. -Continue Nitro paste, Aspirin. Pain control with IV Dilaudid prn. Started colcisine and naproxen and patient improved significantly with NSAIds. -Monitor on telemetry -Echocardiogram reviewed, notmal EF no tamponade or valvulopathies. -Patient borderline hypotensive, giving IVF bolus and start on maintenance fluids -Consult cardiology Diffuse Pains, suspect Ankylosing Spondylitis Exacerbation: patient on prednisone 2mg daily and Humira q14d. Follows with seat trimmer Dr. Street -increase steroids to IV Solumedrol 60mg bid -continue patient's oxycodone, and supplement with IV Dilaudid prn pain scale /breakthrough GERD: chronic, continue patient's PPI. DVT Prophylaxis: teds/SCDs Improved,. Seen by Dr Hu cardiology cleared for dC to follow up a OP DC home in fairly good condition To follow up with PCP and consultants as OP Meds per med reconciliations Activity as tolerated Diet regular healthy diet Abbie Marsh MD Sep 30, 2016 14:15
== END 2016-09-30 14:23 | disposition home or self-care (01) ==
LOC: NEPC 01:54 → INTOOBSV 05:07 → NEDA 05:07 → N04A 18:18
PROVIDERS: ADMIT Hospitalist; ATTEND Hospitalist
DX: R07.9 Chest pain, unspecified (principal); I31.9 Disease of pericardium, unspecified; D72.829 Elevated white blood cell count, unspecified; M45.9 Ankylosing spondylitis of unspecified sites in spine; K59.00 Constipation, unspecified; R06.02 Shortness of breath; M13.80 Other specified arthritis, unspecified site; M54.89 Other dorsalgia; K21.9 Gastro-esophageal reflux disease without esophagitis
CPT/HCPCS: 71010; 71275; 80048; 80053; 81001; 82550; 82552; 83605; 83690; 83735; 83880; 84484; 85007; 85025; 85027; 85379; 85610; 85652; 85730; 87040; 90732; 93005; 93306; 96361; 96374; 96375; 99285; C9113; G0378; J1170; J2270; J2405; J2930; J7030; J7040; J7512; Q9967; 90471; G0009